=== PATIENT | male | born 1980 | race Caucasian/White ===

== ENCOUNTER 2020-01-04 09:34 | Emergency (ER) | payer SELFPAY ==
[2020-01-04 09:39] VITALS: BP 173/106; PULSE 111; RESP 18; TEMP 36.9; O2SAT 100; BMI 23.0
--- NOTE | 2020-01-04 10:02 | ED.GENADULT ---
HPI - General Adult General Chief complaint: Extremity Injury, Upper Stated complaint: L shoulder muscle pain, no ROM Time Seen by Provider: 01/04/20 09:44 Source: patient Mode of arrival: Ambulatory Limitations: no limitations History of Present Illness HPI narrative: 39-year-old male here for evaluation of left shoulder pain. Patient states that approximately 1 month ago he injured his shoulder while at work. This seemed to improve somewhat but always had a small amount of residual discomfort. 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 Thought that it would just improve overnight. Woke up this morning and went to work and had quite a bit of discomfort especially with moving his shoulder. He did not fall on his shoulder. Was told to come in by his boss. Related Data Previous Rx's Medication Instructions Recorded acetaminophen-codeine 1 tab PO Q4-6H PRN #7 tab 01/04/20 [Tylenol-Codeine #3] Allergies Allergy/AdvReac Type Severity Reaction Status Date / Time No Known Drug Allergies Allergy Verified 01/04/20 09:39 Review of Systems Constitutional Constitutional: Denies fever(s), Denies headache(s) and Denies weakness ENT Ears, Nose, Mouth, and Throat: Denies headache(s) Musculoskeletal Musculoskeletal: Denies tingling Comments: Left shoulder pain Integumentary/Breasts Skin/Breast: Denies lesions and Denies rash Neurologic Neurologic: Denies headache(s), Denies tingling and Denies weakness Hematologic/Lymphatic Hematologic/Lymphatic: Denies easy bleeding and Denies easy bruising Patient History Medical History Patient denies medical problems (Acute) Social History Smoking Status: Current every day smoker Smoking Status: Current every day smoker Substance Use Type: does not use Exam Initial Vital Signs Initial Vital Signs: Vital Signs Temperature 98.4 F 01/04/20 09:39 Pulse Rate 111 H 01/04/20 09:39 Respiratory Rate 18 01/04/20 09:39 Blood Pressure 173/106 H 01/04/20 09:39 Pulse Oximetry 100 01/04/20 09:39 Const General: cooperative and comfortable Limitations: mental status not altered [facility] Head: normal to inspection and normocephalic Resp Effort & Inspection: normal respiratory effort Cardio Rate: regular rate Pulses: radial pulses present on the left Skin Lesions: no lesions Rashes: no rashes Neuro Sensory Exam: no sensory deficits noted Extrem Other: Left wrist and left elbow unremarkable. Patient does have tenderness to palpation of the left biceps tendon proximally. He also has a positive Neer test. Also has pain with abduction of his shoulder. He can touch his right shoulder with his left hand however does have pain. Course Orders Ordered: Discontinued Medications Ketorolac Tromethamine (Toradol) 30 mg IM NOW ONE Stop: 01/04/20 10:01 Vital Signs Vital signs: Vital Signs - 8 hr 01/04/20 09:39 Temperature 98.4 F Pulse Rate 111 H Respiratory Rate 18 Blood Pressure 173/106 H Pulse Oximetry 100 Medical Decision Making MDM Narrative Medical decision making narrative: Patient has history and physical exam is consistent with a biceps tendinitis/strain or sprain. He did not fall on his shoulder. There is no other specific trauma. I feel we can hold on any radiologic studies for now. I did discuss these findings with the patient. We did discuss use of anti-inflammatories. We will send home with a sling however he was instructed to spend as much time out of the sling as possible. He was given return precautions. He is also given a phone number to help with establishing a primary provider in the area. Discharge Plan Departure Patient Disposition: Home Clinical Impression: Sprain, bicep Qualifiers: Encounter type: initial encounter Laterality: left Qualified Code(s): S46.212A - Strain of muscle, fascia and tendon of other parts of biceps, left arm, initial encounter Instructions: DI for Shoulder Sprain Activity Restrictions/Additional Instructions: Recommend you contact the health natural resources technician here at the hospital at [phone]. Take the medications as directed. Use the sling as needed but spend as much time out of the sling as possible. Return to the emergency department for any new symptoms. Recommend that you also start taking an anti-inflammatories such as Motrin or Naprosyn. Prescriptions: New acetaminophen-codeine [Tylenol-Codeine #3] 300-30 mg tablet 1 tab PO Q4-6H PRN (Reason: pain) Qty: 7 RF: 0 Stand Alone Forms: Work Release Note
[2020-01-04] MEDS: KETOROLAC 60 MG/2 ML VIAL 30 MG IM (10:23)
[2020-01-04 10:32] VITALS: BP 153/96; PULSE 110; RESP 20; O2SAT 99
== END 2020-01-04 10:34 | disposition home or self-care (01) ==
PROVIDERS: Emergency Provider Emergency Medicine
DX: S46.212A Strain of muscle, fascia and tendon of other parts of biceps, left arm, initial encounter (principal); Y99.0 Civilian activity done for income or pay
CPT/HCPCS: 96372; 99283; J1885

== ENCOUNTER 2020-09-25 17:08 | Emergency (ER) | payer OTHER, MEDICAID, SELFPAY ==
[2020-09-25 17:19] VITALS: BP 126/91; PULSE 108; RESP 20; TEMP 36.8; O2SAT 98; BMI 23.0
--- NOTE | 2020-09-25 17:29 | DI.RAD.S_ITS ---
PROCEDURE: XR CHEST 2V INDICATIONS: coughing. injury to sternum 7 days ago TECHNIQUE: 2 views of the chest were acquired. COMPARISON: None. FINDINGS: Surgical changes and devices: None. Lungs and pleura: Lungs are clear. No pleural effusions or pneumothorax. Mediastinum: Mediastinal contours are normal. Heart size is normal. Bones and chest wall: No suspicious bony abnormalities. To the limits of this normal protocol plain film study, no sternal fracture can be seen. Soft tissues appear unremarkable. IMPRESSION: Clear lungs. No sternal fracture by plain film. If there is strong clinical concern for intrathoracic trauma, then please consider a dedicated chest CT with IV contrast for further evaluation. Dictated by: Demetrio Treviño M.D. on 09/25/2020 at 16:47 Approved by: Demetrio Treviño M.D. on 09/25/2020 at 16:48
[2020-09-25 17:46] LABS: COVID19 -Nasal RAPID Negative (Negative)
[2020-09-25 18:02] VITALS: PULSE 90
[2020-09-25 18:04] VITALS: BP 144/98; PULSE 89; RESP 22; O2SAT 98
[2020-09-25 18:30] VITALS: BP 142/101; PULSE 98; RESP 25; O2SAT 98
--- NOTE | 2020-09-25 18:33 | ED.CHESTPAIN ---
HPI - Chest Pain General Chief Complaint: Shortness of Breath/Dyspnea Stated Complaint: ribs hurt, chest on fire, cough Time Seen by Provider: 09/25/20 18:01 Source: patient Mode of arrival: Family Vehicle Limitations: no limitations History of Present Illness HPI narrative: Patient is a 40-year-old male who presents with chest discomfort ongoing for 1 week. He said he and a joyce were wrestling about a week ago when his body landed directly on his chest. He is her knee take deep breaths needs. He is worried because he was previously diagnosed with pneumonia a couple weeks ago he did finish intake all this antibiotics. He said a few days ago he started having some chest congestion again but states that his productive cough is not any worse than normal. He only had 1 episode of sweats and low-grade fever after he took Tylenol. He has been trying to rest. He has been taking shots of vodka to help him sleep with the pain. MD complaint: chest pain Onset (ago): week(s) (1) Duration: constant Pain location: substernal Related Data Previous Rx's Medication Instructions Recorded acetaminophen-codeine 1 tab PO Q4-6H PRN #7 tab 01/04/20 [Tylenol-Codeine #3] Allergies Allergy/AdvReac Type Severity Reaction Status Date / Time No Known Drug Allergies Allergy Verified 09/25/20 17:29 Review of Systems Review of Systems Narrative: GENERAL: Denies chills, fatigue, malaise, fever, sweats, travel HEENT: Denies sinus pain, ear pain, sore throat, difficulty swallowing, neck pain RESPIRATORY: See HPI CARDIOVASCULAR: Denies chest pain, palpitations, orthopnea, edema GASTROINTESTINAL: Denies nausea, vomiting, abdominal pain, diarrhea, constipation, melena. : Denies dysuria, frequency, incontinence, hematuria, urinary retention, flank pain. MUSCULOSKELETAL: Denies weakness, joint pain, or bony pain SKIN: No rash, no erythema, no pruritus NEUROLOGIC: Denies weakness, dizziness, headache, numbness, change in speech, confusion PSYCHIATRIC: No concerning psychosocial issues. 12 point review of systems is negative except for those stated above and HPI Patient History Medical History Patient denies medical problems Social History Smoking Status: Current every day smoker Smoking Status: Current every day smoker tobacco type: cigarettes alcohol intake frequency: 0-2 drinks per day Alcohol type: hard liquor Substance Use Type: marijuana Exam Initial Vital Signs Initial Vital Signs: Vital Signs Temperature 98.3 F 09/25/20 17:19 Pulse Rate 108 H 09/25/20 17:19 Respiratory Rate 20 09/25/20 17:19 Blood Pressure 126/91 H 09/25/20 17:19 Pulse Oximetry 98 09/25/20 17:19 GENERAL: Well-appearing, well-nourished and in no acute distress. HEENT: Head atraumatic,EOMI, pupils reactive, face symmetric, moist mucous membranes CARDIOVASCULAR: Regular rate and rhythm without murmurs, rubs or gallops. RESPIRATORY: Breath sounds equal bilaterally, no wheezes rales or rhonchi. Pain over sternum with palpation no sign of trauma no contusion or erythema or paradoxical movement ABDOMEN: Soft, nontender. Normoactive bowel sounds all 4 quadrants. No guarding or rebound. No right upper quadrant pain EXTREMITIES: Normal range of motion, no clubbing or edema. Neurovascularly intact NEUROLOGICAL: Alert and oriented x4.Normal gait and speech. SKIN: Warm, dry, no laceration, no petechiae, no rashes or lesions. Course Orders Ordered: ED Orders 09/25/20 17:23 COVID19 Stat 09/25/20 17:29 Chest [XR chest 2V] Stat 09/25/20 18:34 EKG-12 Lead Stat Discontinued Medications Ketorolac Tromethamine (Ketorolac 60 Mg/2 Ml Vial) 30 mg IM NOW ONE Stop: 09/25/20 18:33 Last Admin: 09/25/20 18:42 Dose: 30 mg Documented by: GERALD Vital Signs Vital signs: Vital Signs - 8 hr 09/25/20 17:19 09/25/20 18:02 09/25/20 18:04 Temperature 98.3 F Pulse Rate 108 H 90 89 Respiratory Rate 22 Blood Pressure 126/91 H 144/98 H Pulse Oximetry 98 98 09/25/20 18:30 09/25/20 19:00 09/25/20 19:30 Temperature Pulse Rate 98 H 92 H 87 Respiratory Rate 25 H 23 29 H Blood Pressure 142/101 H 135/97 H 136/96 H Pulse Oximetry 98 99 97 MDM - Chest Pain Lab Data Attestation: I reviewed the patient's lab results. Labs: Lab Results 09/25/20 Range/Units 17:23 COVID-19 PCR Negative (Negative) Imaging Data Chest x-ray: Radiologist's Impression: PROCEDURE: XR CHEST 2V INDICATIONS: coughing. injury to sternum 7 days ago TECHNIQUE: 2 views of the chest were acquired. COMPARISON: None. FINDINGS: Surgical changes and devices: None. Lungs and pleura: Lungs are clear. No pleural effusions or pneumothorax. Mediastinum: Mediastinal contours are normal. Heart size is normal. Bones and chest wall: No suspicious bony abnormalities. To the limits of this normal protocol plain film study, no sternal fracture can be seen. Soft tissues appear unremarkable. IMPRESSION: Clear lungs. No sternal fracture by plain film. If there is strong clinical concern for intrathoracic trauma, then please consider a dedicated chest CT with IV contrast for further evaluation. Dictated by: Demetrio Treviño M.D. on 09/25/2020 at 16:47 ECG Data Attestation: I personally reviewed and interpreted this ECG as follows: Interpretation: Normal sinus rhythm rate 83 p.r. interval 146 QRS [address] changes or T-wave inversions [facility] Narrative Medical decision making narrative: The patient is concerned his pneumonia might be back although he has not had any definite fever or productive cough. Chest x-ray does not confirm pneumonia, nor does it show any fracture. This is likely chest and rib sternal strain. He is given incentive spirometer to be sure that he take deep breaths. His COVID test is negative. He is given a shot of Toradol which he says has helped a lot. Discharge Plan Departure Patient Disposition: Home Clinical Impression: Contusion of sternum Qualifiers: Encounter type: initial encounter Qualified Code(s): S20.219A - Contusion of unspecified front wall of thorax, initial encounter Activity Restrictions/Additional Instructions: *You have been diagnosed with sternal contusion *What to do: Take a few weeks to heal. Use incentive spirometer up to 5-10 times an hour while awake to help prevent recurrent pneumonia *Continue to take medications as directed Ibuprofen 800 mg every 8 hours if needed for [id number] pain *Follow up with your primary care provider in 2-3 days *Return to ER if you should have pain shortness of breath fever or any new, worsening or concerning symptoms Prescriptions: No Action acetaminophen-codeine [Tylenol-Codeine #3] 300-30 mg tablet 1 tab PO Q4-6H PRN (Reason: pain) Qty: 7 RF: 0
[2020-09-25] MEDS: KETOROLAC 60 MG/2 ML VIAL 30 MG IM (18:42)
[2020-09-25 19:00] VITALS: BP 135/97; PULSE 92; RESP 23; O2SAT 99
[2020-09-25 19:30] VITALS: BP 136/96; PULSE 87; RESP 29; O2SAT 97
--- NOTE | 2020-09-25 19:44 | PC.NURSE ---
Pt was wrestling about a week ago, when someone fell on his chest. Increasing pain over past week in sternal area. States unable to take a deep breath related to the pain.
== END 2020-09-25 19:44 | disposition home or self-care (01) ==
PROVIDERS: Emergency Medicine; Emergency Provider Emergency Medicine
DX: S20.219A Contusion of unspecified front wall of thorax, initial encounter (principal); Y93.72 Activity, wrestling; Z11.59 Encounter for screening for other viral diseases
CPT/HCPCS: 71046; 87635; 93005; 93010; 96372; 99283; STOP; J1885

== ENCOUNTER → 2023-01-18 13:57 | Outpatient (CLI) | payer OTHER, MEDICAID, SELFPAY ==
[2023-01-18 14:26] LABS: Hematocrit 30.2 % (41-53); Hemoglobin 10.2 g/dL (13.5-17.5); Mean Corpuscular HGB Conc 33.8 % (30-36); Mean Corpuscular Volume 103.6 fL (80-100); Platelet Count 560 X10^3/uL (150-400); Red Blood Cell Count 2.91 X10^6/uL (4.5-5.9); Red Cell Distribution Width 21.8 % (11.6-14.8)
[2023-01-18 14:27] LABS: Add Manual Diff / Slide Review YES
[2023-01-18 14:41] LABS: Alanine Aminotransferase 52 IU/L (<50); Albumin 3.1 g/dL (3.5-5.0); Albumin Globulin Ratio 0.6 (1.0-2.8); Alkaline Phosphatase 238 U/L (38-126); Aspartate Aminotransferase 227 IU/L (17-59); BUN Creatinine Ratio 9.3 (6-22); Blood Urea Nitrogen 4 mg/dL (9-20); Calcium 8.5 mg/dL (8.4-10.2); Carbon Dioxide 17 mmol/L (22-32); Chloride 109 mmol/L (98-107); Estimated Glomerular Filt Rate > 60 mL/min (>60); Globulin 4.8 g/dL (1.7-4.1); Glucose 116 mg/dL (70-100); HEMOLYSIS 32 (0-50); Lipase 146 U/L (23-300); Potassium 2.8 mmol/L (3.4-5.1); Sodium 140 mmol/L (137-145); Total Protein 7.9 g/dL (6.3-8.2)
[2023-01-18 14:54] LABS: Neutrophils Absolute Manual 13600 /uL (3000-5900); Total Cells Counted 100
[2023-01-18 14:58] LABS: Macrocytosis 1+; Target Cells 1+
[2023-01-18 14:59] LABS: Polychromasia 1+
== END ==
PROVIDERS: PCP Family Medicine; Referring Provider Family Medicine; Visit Provider Family Medicine
DX: F10.10 Alcohol abuse, uncomplicated (principal); K85.90 Acute pancreatitis without necrosis or infection, unspecified
CPT/HCPCS: 36415; 80053; 83690; 85007; 85025

== ENCOUNTER → 2023-02-08 10:56 | Outpatient (CLI) | payer OTHER, MEDICAID, SELFPAY ==
[2023-02-08 11:45] LABS: Ammonia (NH3) < 9 umol/L (9-30)
[2023-02-08 11:57] LABS: Add Manual Diff / Slide Review NO; Basophils Absolute Auto 100 /uL (0-100); Eosinophils Absolute Auto 900 /uL (0-450); Hematocrit 36.4 % (41-53); Lymphocytes Absolute Auto 3100 /uL (1100-4500); Lymphocytes Percent Auto 25.3 % (25-40); Mean Corpuscular Hemoglobin 33.7 PG (26-34); Mean Corpuscular Volume 102.3 fL (80-100); Monocytes Absolute Auto 900 /uL (0-900); Monocytes Percent Auto 6.9 % (3-14); Neutrophils Absolute Auto 7400 /uL (1500-7000); Neutrophils Percent Auto 59.8 % (50-75); Platelet Count 356 X10^3/uL (150-400); Red Blood Cell Count 3.56 X10^6/uL (4.5-5.9); Red Cell Distribution Width 15.2 % (11.6-14.8); White Blood Cell Count 12.4 X10^3/uL (4.5-11.0)
[2023-02-08 12:34] LABS: Alanine Aminotransferase 50 IU/L (<50); Albumin 3.9 g/dL (3.5-5.0); Alkaline Phosphatase 111 U/L (38-126); Amylase 83 U/L (30-110); Aspartate Aminotransferase 87 IU/L (17-59); BUN Creatinine Ratio 16.7 (6-22); Bilirubin Total 2.2 mg/dL (0.2-1.3); Blood Urea Nitrogen 8 mg/dL (9-20); Calcium 10.8 mg/dL (8.4-10.2); Carbon Dioxide 21 mmol/L (22-32); Chloride 105 mmol/L (98-107); Estimated Glomerular Filt Rate > 60 mL/min (>60); Globulin 3.9 g/dL (1.7-4.1); Glucose 93 mg/dL (70-100); HEMOLYSIS < 15 (0-50); Lipase 244 U/L (23-300); Potassium 4.8 mmol/L (3.4-5.1); Sodium 138 mmol/L (137-145); Total Protein 7.8 g/dL (6.3-8.2)
[2023-02-08 12:38] LABS: HEMOLYSIS < 15 (0-50); Iron 39 ug/dL (49-181)
[2023-02-08 12:49] LABS: Percent Iron Saturation 10 % (20-50); Total Iron Binding Capacity 381 ug/dL (261-462); Transferrin 293 mg/dL (206-381)
== END ==
PROVIDERS: PCP Family Medicine; Referring Provider Family Medicine; Visit Provider Family Medicine
DX: F10.10 Alcohol abuse, uncomplicated (principal); K74.60 Unspecified cirrhosis of liver; K85.90 Acute pancreatitis without necrosis or infection, unspecified
CPT/HCPCS: 36415; 80053; 82140; 82150; 83540; 83550; 83690; 85025

== ENCOUNTER 2024-03-29 11:41 | Inpatient (IN) | payer OTHER, MEDICAID, SELFPAY ==
[2024-03-29] VITALS (27 sets, daily range): BP systolic 109–145; BP diastolic 69–93; PULSE 85–125; RESP 15–31; TEMP 36.9–37.6; O2SAT 92–99; BMI 20.2
--- NOTE | 2024-03-29 12:11 | DI.RAD.S_ITS ---
PROCEDURE: XR CHEST 1V INDICATIONS: chest pain TECHNIQUE: One view of the chest was acquired. COMPARISON: [facility], , XR CHEST 2V, 09/25/2020, 17:32. FINDINGS: Surgical changes and devices: None. Lungs and pleura: Lungs are clear. No pleural effusions or pneumothorax. Mediastinum: Mediastinal contours appear normal. Heart size is normal. Bones and chest wall: No suspicious bony lesions. Overlying soft tissues appear unremarkable. IMPRESSION: No acute cardiopulmonary abnormality is seen. Approved by: Mary Kate Bautista M.D.,Ph.D. on 03/29/2024 at 12:01
[2024-03-29 12:42] LABS: Add Manual Diff / Slide Review NO; Basophils Absolute Auto 100 /uL (0-100); Basophils Percent Auto 0.5 % (0-2); Eosinophils Absolute Auto 100 /uL (0-450); Eosinophils Percent Auto 0.5 % (2-4); Hematocrit 38.5 % (41-53); Hemoglobin 13.1 g/dL (13.5-17.5); Lymphocytes Absolute Auto 1200 /uL (1100-4500); Lymphocytes Percent Auto 8.1 % (25-40); Mean Corpuscular HGB Conc 34.1 % (30-36); Mean Corpuscular Volume 108.5 fL (80-100); Monocytes Absolute Auto 1100 /uL (0-900); Monocytes Percent Auto 7.6 % (3-14); Neutrophils Absolute Auto 12400 /uL (1500-7000); Neutrophils Percent Auto 83.3 % (50-75); Platelet Count 138 X10^3/uL (150-400); Red Blood Cell Count 3.55 X10^6/uL (4.5-5.9); Red Cell Distribution Width 14.7 % (11.6-14.8); White Blood Cell Count 14.9 X10^3/uL (4.5-11.0)
[2024-03-29] MEDS: ONDANSETRON 4 MG/2 ML INJ IV (12:44)
[2024-03-29 12:47] LABS: Prothrombin Time 11.8 SECONDS (9.4-12.5)
[2024-03-29 12:50] LABS: PTT Partial Thromboplastin Tim 38 SECONDS (25.1-36.5)
[2024-03-29 12:52] LABS: Alanine Aminotransferase 79 IU/L (<50); Albumin 4.1 g/dL (3.5-5.0); Albumin Globulin Ratio 1.1 (1.0-2.8); Alkaline Phosphatase 392 U/L (38-126); Aspartate Aminotransferase 301 IU/L (17-59); BUN Creatinine Ratio 11.1 (6-22); Blood Urea Nitrogen 5 mg/dL (9-20); Calcium 8.6 mg/dL (8.4-10.2); Carbon Dioxide 19 mmol/L (22-32); Chloride 104 mmol/L (98-107); Creatine Kinase 47 U/L (55-170); Estimated Glomerular Filt Rate > 60 mL/min (>60); Globulin 3.6 g/dL (1.7-4.1); Glucose 174 mg/dL (70-100); HEMOLYSIS < 15 (0-50); Lipase 111 U/L (23-300); Magnesium 1.7 mg/dL (1.6-2.3); Potassium 3.5 mmol/L (3.4-5.1); Sodium 139 mmol/L (137-145); Total Protein 7.7 g/dL (6.3-8.2)
[2024-03-29 13:03] LABS: Troponin I < 0.012 ng/mL (0.01-0.034)
--- NOTE | 2024-03-29 13:03 | PC.NURSE ---
Pt came to ED today because he has been experiencing upper right abd pain and epigastric cp for several days. Pt also reports that he has been experiencing n/v and has a difficult time keeping anything down, even if he takes just small bites. Pt currently drinks at least 750ml of vodka per day. Pt currently states that he is feeling a tingling sensation in his skin and that his skin is very sensitive to touch. Denies any bloody vomit/stools. Denies any visual or auditory hallucinations. C/o mild HARRIS. CIWA 4. HR currently 122. Pt has hx of inpatient ETOH detox at [facility] and in [place]. A&Ox4.
[2024-03-29 13:15] LABS: Ictotest Urine Positive (Negative)
--- NOTE | 2024-03-29 13:20 | PC.NURSE ---
pt last ETOH drink at 209903/28/2024
[2024-03-29 13:30] LABS: Bacteria Urine None Seen; Culture Indicated Urine Specimen Cultured; Mucus Urine 1+ (Negative); RBC Urine None Seen (0-5/HPF); Squamous Epithelial Cell Urine None Seen (0-5/HPF); Urine Volume 10mL (spun); WBC Urine 0-1/HPF (0-5/HPF)
[2024-03-29 13:31] LABS: UR Morphine/Opiate cutoff 300 Negative (Negative); Ur Creatinine Normal (Normal); Ur Specific Gravity Normal (Normal); Urine Amphetamines Negative (Negative); Urine Barbiturates Negative (Negative); Urine Benzodiazepines Negative (Negative); Urine Cocaine Negative (Negative); Urine MDMA Negative (Negative); Urine Methadone Negative (Negative); Urine Methamphetamines Negative (Negative); Urine Oxycodone Negative (Negative); Urine Phencyclidine Negative (Negative); Urine Tetrahydrocannabinol Positive (Negative); Urine Tricyclic Antidepressant Negative (Negative); Urine pH Normal (Normal)
[2024-03-29] MEDS: LORazepam 2 MG/ML INJ IV (14:18)
[2024-03-29] MEDS: SODIUM CHLORIDE 0.9% 1,000 ML 1000 ML IV (14:18)
--- NOTE | 2024-03-29 14:36 | ED_ITS ---
HPI - Chest Pain General Chief Complaint: Chest Pain Stated Complaint: Chest Pain, Abd numbness, constipation Time Seen by Provider: 03/29/24 14:36 Source: patient Mode of arrival: Ambulatory Limitations: no limitations History of Present Illness HPI narrative: 43-year-old male with no known history of CAD, history of chronic alcoholism, drinks a pint of vodka daily, last drink 7:00 p.m. last night, feels a little shaky, has some chest discomfort, also some upper epigastric area abdominal discomfort. When asked if he had any black or red stools, he says he has had this for many months, unchanged. Denies use of Pepto-Bismol. Does not seem to recognize diagnoses of cirrhosis, never had fluid drained from his belly, denies sensation of abdominal distention. He does not recall any previous history of stomach ulcers or GI bleeding. He believes he was admitted to [facility] for alcohol withdrawal in the past, sometime last year. Related Data Previous Rx's Medication Instructions Recorded potassium chloride 20 mEq 20 meq PO BID low potassium #60 01/24/23 tablet,extended release(part/cryst) tabs acamprosate 333 mg tablet,delayed 666 mg (2 x 333 mg) PO TID alcohol 02/08/23 release abuse #180 tabs oxycodone 5 mg tablet 2.5 - 5 mg (0.5 - 1 x 5 mg) PO BID 02/08/23 PRN pain #10 tabs Allergies Allergy/AdvReac Type Severity Reaction Status Date / Time morphine AdvReac Unknown Uncoded 02/13/23 11:29 Review of Systems Review of Systems Narrative: as per HPI Patient History Medical History (Updated 03/29/24 @ 20:03 by Jac Castle MD) Chronic cough (~2021) Cirrhosis Hypokalemia Pancreatitis (~2022) Alcohol abuse Patient denies medical problems Family History (Updated 02/12/23 @ 21:02 by Emily Barajas) Father History of heart disease Hypertension Hyperlipidemia Stroke Mother History of heart disease Hyperlipidemia Social History Smoking Status: Current every day smoker Smoking Status: Current every day smoker tobacco type: cigarettes alcohol intake frequency: 3 or more drinks per day Alcohol type: hard liquor Substance Use Type: marijuana Exam Narrative Exam Narrative: GENERAL: Well-developed patient, in mild distress, some tremulousness. HEAD: Atraumatic. Normocephalic. EYES: Pupils equal round and reactive. Extraocular motions intact. No scleral icterus. No injection or drainage. ENT: Nose without bleeding, purulent drainage. Throat without erythema, tonsillar hypertrophy or exudate. Airway patent. NECK: Trachea midline. Non tender CARDIOVASCULAR: Fast rate and regular rhythm without murmurs, gallops, or rubs. RESPIRATORY: Clear to auscultation. Breath sounds equal bilaterally. No wheezes, rales, or rhonchi. GASTROINTESTINAL: Abdomen soft, nondistended, without obvious fluid wave, some tenderness epigastrium, nonrigid, no guarding or rebound. EXTREMITIES: No edema or joint tenderness. BACK: Nontender without deformity or crepitance. No flank tenderness. NEURO: AOx3. SKIN: No rash or erythema of visible areas Initial Vital Signs Initial Vital Signs: Vital Signs Temperature 98.4 F 03/29/24 12:04 Pulse Rate 116 H 03/29/24 12:04 Respiratory Rate 18 03/29/24 12:04 Blood Pressure 111/90 03/29/24 12:04 Pulse Oximetry 97 03/29/24 12:04 Oxygen Delivery Method Room Air 03/29/24 12:04 Course Orders Ordered: ED Orders 03/29/24 12:56 Ictotest Urine Stat Urine Culture Stat Urine Microscopic Stat urine tox [Urine Drug Screen, Rapid] Stat 03/29/24 16:20 Prothrombin Time INR Stat 03/29/24 17:08 CT abdomen pelvis w con Stat Folic Acid (Folic Acid 1 Mg Tablet) 1 mg PO DAILY [facility] Lorazepam (Lorazepam 2 Mg/Ml Inj) 0 mg IV CIWAPRN PRN; Protocol PRN Reason: Alcohol Withdrawal Multivitamins (Multivitamin 1 Tablet) 1 tab PO DAILY [facility] Naloxone HCl (Naloxone 0.4 Mg/Ml Vial) 0.2 mg IV Q2MIN PRN PRN Reason: Opiate Reversal Ondansetron HCl (Ondansetron 4 Mg/2 Ml Inj) 4 mg IV Q6HR PRN PRN Reason: Nausea And Vomiting Pantoprazole Sodium (Pantoprazole 40 Mg Vial) 40 mg IV DAILY [facility] Thiamine HCl (Thiamine 100 Mg Tablet) 100 mg PO DAILY [facility] Stop: 04/02/24 09:01 Discontinued Medications Aspirin (Aspirin 81 Mg Chew Tab) 324 mg PO NOW ONE Stop: 03/29/24 12:12 Last Admin: 03/29/24 13:15 Dose: Not Given Documented By: MPO Hydromorphone HCl (Hydromorphone 0.5 Mg Inj) 0.5 mg IV NOW ONE Stop: 03/29/24 19:32 Last Admin: 03/29/24 19:37 Dose: 0.5 mg Documented By: AB Sodium Chloride (Normal Saline 0.9%) 1,000 mls @ 1,000 mls/hr IV BOLUS ONE Stop: 03/29/24 15:08 Last Infusion: 03/29/24 15:51 Dose: Infused Documented By: Admin: 03/29/24 14:18 Dose: 1,000 mls/hr Documented By: MPO Lorazepam (Lorazepam 2 Mg/Ml Inj) 2 mg IV NOW ONE Stop: 03/29/24 14:05 Last Admin: 03/29/24 14:18 Dose: 2 mg Documented By: MPO Nicotine (Nicotine 21 Mg Patch) 21 mg TOP NOW ONE Stop: 03/29/24 19:24 Last Admin: 03/29/24 19:34 Dose: 21 mg Documented By: DARIA Ondansetron HCl (Ondansetron 4 Mg/2 Ml Inj) 4 mg IV NOW ONE Stop: 03/29/24 12:41 Last Admin: 03/29/24 12:44 Dose: 4 mg Documented By: ES Ondansetron HCl (Ondansetron 4 Mg/2 Ml Inj) 4 mg IV NOW ONE Stop: 03/29/24 16:08 Last Admin: 03/29/24 18:25 Dose: Not Given Documented By: MPO Pantoprazole Sodium (Pantoprazole 40 Mg Vial) 80 mg IV NOW ONE Stop: 03/29/24 16:08 Last Admin: 03/29/24 16:24 Dose: 80 mg Documented By: MPO Phenobarbital (Phenobarbital 65 Mg/Ml Vial) 65 mg IV NOW ONE Stop: 03/29/24 15:59 Last Admin: 03/29/24 16:24 Dose: 65 mg Documented By: MPO Vital Signs Vital signs: Vital Signs - 8 hr 03/29/24 14:00 03/29/24 14:00 03/29/24 14:30 Pulse Rate 104 H Respiratory Rate 26 H Blood Pressure 127/93 H 123/82 Pulse Oximetry 96 03/29/24 14:30 03/29/24 15:00 03/29/24 15:00 Pulse Rate 106 H 104 H Respiratory Rate 26 H 24 Blood Pressure 121/76 Pulse Oximetry 96 03/29/24 15:30 03/29/24 15:30 03/29/24 16:00 Pulse Rate 105 H Respiratory Rate 19 Blood Pressure 123/69 123/87 Pulse Oximetry 03/29/24 16:00 03/29/24 16:30 03/29/24 17:00 Pulse Rate 125 H 104 H 107 H Respiratory Rate 29 H 31 H Blood Pressure Pulse Oximetry 98 96 92 03/29/24 17:30 03/29/24 18:00 03/29/24 18:30 Pulse Rate 101 H 94 H 100 H Respiratory Rate 23 21 20 Blood Pressure Pulse Oximetry 97 95 95 03/29/24 19:00 03/29/24 19:28 03/29/24 19:28 Pulse Rate 102 H 103 H Respiratory Rate 22 18 Blood Pressure 122/81 Pulse Oximetry 96 96 03/29/24 19:30 03/29/24 19:30 Pulse Rate 118 H Respiratory Rate 23 Blood Pressure 115/77 Pulse Oximetry 97 MDM - Chest Pain Lab Data Attestation: I reviewed the patient's lab results. 03/29/24 12:35 03/29/24 12:35 Labs: Lab Results 03/29/24 03/29/24 03/29/24 Range/Units 12:35 12:56 16:20 WBC 14.9 H (4.5-11.0) X10^3/uL RBC 3.55 L (4.5-5.9) X10^6/uL Hgb 13.1 L (13.5-17.5) g/dL Hct 38.5 L (41-53) % MCV 108.5 H (80-100) fL MCH 37.0 H (26-34) PG MCHC 34.1 (30-36) % RDW 14.7 (11.6-14.8) % Plt Count 138 L (150-400) X10^3/uL Neut % (Auto) 83.3 H (50-75) % Lymph % (Auto) 8.1 L (25-40) % [place] % (Auto) 7.6 (3-14) % Eos % (Auto) 0.5 L (2-4) % Baso % (Auto) 0.5 (0-2) % Neut # (Auto) 75151 H (6322-1588) /uL Lymph # (Auto) 1200 (0265-5191) /uL [place] # (Auto) 1100 H (0-900) /uL Eos # (Auto) 100 (0-450) /uL Baso # (Auto) 100 (0-100) /uL PT 11.8 12.4 (9.4-12.5) SECONDS INR 1.0 1.1 (0.9-1.3) APTT 38 H (25.1-36.5) SECONDS Sodium 139 (137-145) mmol/L Potassium 3.5 (3.4-5.1) mmol/L Chloride 104 (98-107) mmol/L Carbon Dioxide 19 L (22-32) mmol/L BUN 5 L (9-20) mg/dL Creatinine 0.45 L (0.66-1.25) mg/dL Estimated GFR > 60 (>60) mL/min BUN/Creatinine Ratio 11.1 (6-22) Glucose 174 H (70-100) mg/dL Calcium 8.6 (8.4-10.2) mg/dL Magnesium 1.7 (1.6-2.3) mg/dL Total Bilirubin 2.0 H (0.2-1.3) mg/dL AST 301 H (17-59) IU/L ALT 79 H (<50) IU/L Alkaline Phosphatase 392 H (38-126) U/L Total Creatine Kinase 47 L (55-170) U/L Troponin I < 0.012 (0.01-0.034) ng/mL Total Protein 7.7 (6.3-8.2) g/dL Albumin 4.1 (3.5-5.0) g/dL Globulin 3.6 (1.7-4.1) g/dL Albumin/Globulin Ratio 1.1 (1.0-2.8) Lipase 111 (23-300) U/L Ur Bilirubin Confirm Positive H (Negative) Urine RBC None seen (0-5/HPF) Urine WBC 0-1/hpf (0-5/HPF) Ur Squamous Epith Cells None seen (0-5/HPF) Urine Bacteria None seen (None) Urine Mucus 1+ H (Negative) Ur Culture Indicated? Specimen cultured Vol Urine Centrifuged 10ml (spun) U Opiates 300ng/mL cut Negative (Negative) Ur Oxycodone Screen Negative (Negative) Urine Methadone Screen Negative (Negative) Ur Barbiturates Screen Negative (Negative) U Tricyclic Antidepress Negative (Negative) Ur Phencyclidine Scrn Negative (Negative) Ur Amphetamines Screen Negative (Negative) U Methamphetamines Scrn Negative (Negative) Ur MDMA Scrn (Ecstasy) Negative (Negative) U Benzodiazepines Scrn Negative (Negative) Urine Cocaine Screen Negative (Negative) U Marijuana (THC) Screen Positive H (Negative) Urine pH Normal (Normal) Urine Specific [place] Normal (Normal) Ur Creatinine Normal (Normal) Point of Care Testing Stool Occult Blood Negative Urine Dip Bedside Urine Glucose Negative Bedside Urine Bilirubin + 1 Bedside Urine Ketone +/- 5 Urine Specific [place] 1.020 Bedside Urine Occult Blood - Negative Bedside Urine pH 6.0 Bedside Urine Protein ++ 100 Bedside Urine Urobilinogen 1+ 2mg Bedside Urine Nitrite + Positive Bedside Urine Leukocytes + 70 Esterase Imaging Data Chest x-ray: Radiologist's Impression: [address] [address] XRay Report Signed Patient: Ashwin Hancock MR#: [id number] : 1980 Acct:[id number] Age/Sex: 43 / M Date of Service: 03/29/24 Loc: ED Accession Number: [id number] Procedure: XR chest 1V Ordering Provider: Jac Castle MD PROCEDURE: XR CHEST 1V INDICATIONS: chest pain TECHNIQUE: One view of the chest was acquired. COMPARISON: [facility], , XR CHEST 2V, 09/25/2020, 17:32. FINDINGS: Surgical changes and devices: None. Lungs and pleura: Lungs are clear. No pleural effusions or pneumothorax. Mediastinum: Mediastinal contours appear normal. Heart size is normal. Bones and chest wall: No suspicious bony lesions. Overlying soft tissues appear unremarkable. IMPRESSION: No acute cardiopulmonary abnormality is seen. Approved by: Mary Kate Bautista M.D.,Ph.D. on 03/29/2024 at 12:01 CT scan - abdomen/pelvis: Radiologist's Impression: [address] [address] [address] Scan Report Signed Patient: Ashwin Hancock MR#: [id number] : 1980 Acct:[id number] Age/Sex: 43 / M Date of Service: 03/29/24 Loc: ED Accession Number: [id number] Procedure: CT abdomen pelvis w con Ordering Provider: Jac Castle MD PROCEDURE: CT ABDOMEN PELVIS W CON INDICATIONS: abdominal pain, hx etoh TECHNIQUE: After the administration of intravenous contrast, axial sections acquired from the lung bases to the pubic symphysis. Coronal and sagittal reformats were performed. For radiation dose reduction, the following was used: automated exposure control, adjustment of mA and/or kV according to patient size. COMPARISON: None. FINDINGS: Image quality: Diagnostic. Lower Chest: No significant findings. ABDOMEN: Liver: No solid mass. Hepatic steatosis. Gallbladder: No radiopaque gallstones or wall thickening. Biliary ducts: No biliary dilation. Pancreas: No ductal dilation. Spleen: Size is within normal limits. Adrenal Glands: No adrenal nodules. Kidneys and Ureters: No hydronephrosis. No solid mass. No complex renal cystic lesion which requires follow up. Stomach and Bowel: Normal colonic caliber, without significant wall thickening. Normal caliber appendix. Peritoneum: No abnormal intraperitoneal fluid. No free air. Ventral Wall: No significant ventral hernia. Abdominal Nodes: No retroperitoneal or mesenteric adenopathy by size criteria. Vessels: Aorta and inferior vena cava are normal in size. PELVIS: Pelvic Organs: Unremarkable. Bladder: No bladder wall thickening, accounting for underdistention. Pelvic Nodes: No enlarged lymph nodes. Miscellaneous: No inguinal hernias are seen. Bones: No aggressive osseous abnormality. IMPRESSION: Hepatic steatosis. No other acute findings in the abdomen or pelvis. Approved by: Mary Kate Bautista M.D.,Ph.D. on 03/29/2024 at 17:11 ECG Data Attestation: I personally reviewed and interpreted this ECG as follows: Interpretation: Sinus tachycardia with rate 101, no obvious ST segment elevation or depression changes. Some movement artifact from tremulousness noted. MT, QRS, QTC intervals normal. MDM Narrative Medical decision making narrative: 43-year-old male with chronic alcohol use, last drink 7:00 p.m. last night, complains of lower chest and epigastric abdominal pain, tachycardia noted, tremulousness, suspect alcohol withdrawal, has been in alcohol withdrawal in the past, no shaking or incontinence, no seizures suspected thus far, for anxiety was given initial IV Ativan, we will initiate IV phenobarbital for alcohol withdrawal loading. Troponin negative, lipase negative, hemoglobin normal. Chest x-ray negative. He does admit to black stools but apparently this is many months duration and unchanged, denies Pepto-Bismol use. IV Protonix, IV Zofran. White blood cell count 47559, hemoglobin normal, LFTs show AST greater than ALT pattern mild elevation consistent with alcoholic hepatitis, tbili not elevated, lipase normal, urinalysis negative. CT abdomen and pelvis imaging requested. CT abdomen pelvis showed no acute changes. See radiology report Rectal examination brown streaky stool, guaiac negative Patient received IV phenobarbital, transient improvement in withdrawal symptoms, heart rate 110 noted, he will need further treatment, consider admission, believes that he has been admitted for alcohol withdrawal in the past, no seizures. We will contact hospitalist. Case discussed with hospitalist Dr Baltazar, accepts patient for admission to inpatient ICU Critical Care Time Critical Care Time Critical Care Time: Yes Total Critical Care Time: 35 Attestation: The high probability of a clinically significant, sudden or life threatening deterioration of the [gastrointestinal, cardiovascular, neurologic] system(s) required my full and direct attention, intervention and personal management. The aggregate critical care time was [35] minutes. This time is in addition to time spent performing reported procedures but includes the following: [x] Data Review and interpretation [x] Patient assessment and monitoring of vital signs [x] Documentation [x] Medication orders and management Discharge Plan Departure Patient Disposition: Admitted As Inpatient Clinical Impression: Chest pain, Epigastric abdominal pain, Alcohol withdrawal Admit Date/Time: 03/29/24 20:04 Admit Provider: Rob Castaneda
[2024-03-29] MEDS: PHENobarbital 65 MG/ML VIAL IV (16:24)
[2024-03-29] MEDS: PANTOPRAZOLE 40 MG VIAL 80 MG IV (16:24)
[2024-03-29 16:46] LABS: INR 1.1 (0.9-1.3); Prothrombin Time 12.4 SECONDS (9.4-12.5)
--- NOTE | 2024-03-29 17:08 | DI.CT.S_ITS ---
PROCEDURE: CT ABDOMEN PELVIS W CON INDICATIONS: abdominal pain, hx etoh TECHNIQUE: After the administration of intravenous contrast, axial sections acquired from the lung bases to the pubic symphysis. Coronal and sagittal reformats were performed. For radiation dose reduction, the following was used: automated exposure control, adjustment of mA and/or kV according to patient size. COMPARISON: None. FINDINGS: Image quality: Diagnostic. Lower Chest: No significant findings. ABDOMEN: Liver: No solid mass. Hepatic steatosis. Gallbladder: No radiopaque gallstones or wall thickening. Biliary ducts: No biliary dilation. Pancreas: No ductal dilation. Spleen: Size is within normal limits. Adrenal Glands: No adrenal nodules. Kidneys and Ureters: No hydronephrosis. No solid mass. No complex renal cystic lesion which requires follow up. Stomach and Bowel: Normal colonic caliber, without significant wall thickening. Normal caliber appendix. Peritoneum: No abnormal intraperitoneal fluid. No free air. Ventral Wall: No significant ventral hernia. Abdominal Nodes: No retroperitoneal or mesenteric adenopathy by size criteria. Vessels: Aorta and inferior vena cava are normal in size. PELVIS: Pelvic Organs: Unremarkable. Bladder: No bladder wall thickening, accounting for underdistention. Pelvic Nodes: No enlarged lymph nodes. Miscellaneous: No inguinal hernias are seen. Bones: No aggressive osseous abnormality. IMPRESSION: Hepatic steatosis. No other acute findings in the abdomen or pelvis. Approved by: Mary Kate Bautista M.D.,Ph.D. on 03/29/2024 at 17:11
[2024-03-29] MEDS: NICOTINE 21 MG PATCH TOP (19:34)
[2024-03-29] MEDS: HYDROMORPHONE 0.5 MG INJ IV ×2 (19:37→23:43)
[2024-03-29 23:53] LABS: MRSA (Nasal) PCR NOT DETECTED (Not Detect)
[2024-03-30] VITALS (55 sets, daily range): BP systolic 104–116; BP diastolic 74–78; PULSE 77–103; RESP 16–23; TEMP 36.6–37.1; O2SAT 93–98
[2024-03-30] MEDS: HYDROMORPHONE 0.5 MG INJ IV ×5 (02:15→21:11)
[2024-03-30] MEDS: ONDANSETRON 4 MG/2 ML INJ IV (04:48)
--- NOTE | 2024-03-30 05:09 | P.HP_ITS ---
History of Present Illness History of Present Illness Date Patient Seen: 03/29/24 Time Patient Seen: 23:00 Chief complaint: Chest Pain, Abd numbness, constipation Narrative: 43 y/o with PMH of alcoholism, presented to ED with complaints on chest and abdominal pain, tremulous, starting to show withdrawal, lesss then a day after his last drink. [facility] Medical History (Updated 03/30/24 @ 05:26 by Rob Baltazar MD) Alcoholism Chronic cough (~2021) Cirrhosis Hypokalemia Pancreatitis (~2022) Alcohol abuse Patient denies medical problems Family History Father History of heart disease Hypertension Hyperlipidemia Stroke Mother History of heart disease Hyperlipidemia Social History household members: family Smoking Status: Current every day smoker alcohol intake: current Meds Home Medications and Allergies Home Medications Medication Instructions Recorded Confirmed Type No Known Home Medications 03/29/24 03/29/24 History Allergies Allergy/AdvReac Type Severity Reaction Status Date / Time morphine AdvReac Unknown Uncoded 02/13/23 11:29 Review of Systems Constitutional Comments: w/o fever or chills Cardiovascular Comments: resolved chest pain Respiratory Comments: w/o cough, chronically short of breath Gastrointestinal Comments: resolved abdominal pain frequent heartburn episodic dark stool Neurologic Comments: shaking hands Psychiatric Comments: anxious Exam Vital Signs (past 8 hours): - 03/29/24 21:30 03/29/24 21:30 03/29/24 22:10 Temperature 99.7 F H Pulse Rate 85 97 H Respiratory Rate 19 21 Blood Pressure 113/76 122/87 Pulse Oximetry 98 97 Oxygen Delivery Method Oxygen Flow Rate 0 03/29/24 22:18 03/29/24 22:30 03/29/24 22:54 Temperature 99.7 F H Pulse Rate 102 H 98 H Respiratory Rate 15 24 Blood Pressure Pulse Oximetry 97 97 Oxygen Delivery Method Room Air Oxygen Flow Rate 0 03/29/24 23:00 03/29/24 23:30 03/30/24 00:00 Temperature Pulse Rate 99 H 99 H 95 H Respiratory Rate 19 20 17 Blood Pressure Pulse Oximetry 95 94 95 Oxygen Delivery Method Oxygen Flow Rate 03/30/24 00:30 03/30/24 01:00 03/30/24 01:30 Temperature Pulse Rate 95 H 93 H 91 H Respiratory Rate 17 18 17 Blood Pressure Pulse Oximetry 95 95 96 Oxygen Delivery Method Oxygen Flow Rate 03/30/24 02:00 03/30/24 02:00 03/30/24 02:16 Temperature 98.3 F Pulse Rate 93 H 86 Respiratory Rate 19 18 Blood Pressure 112/77 112/77 Pulse Oximetry 94 96 Oxygen Delivery Method Oxygen Flow Rate 03/30/24 02:16 03/30/24 02:30 03/30/24 03:00 Temperature Pulse Rate 99 H 94 H 82 Respiratory Rate 22 Blood Pressure Pulse Oximetry 95 95 94 Oxygen Delivery Method Oxygen Flow Rate 03/30/24 03:30 Temperature Pulse Rate 97 H Respiratory Rate Blood Pressure Pulse Oximetry 95 Oxygen Delivery Method Oxygen Flow Rate Oxygen Delivery Method Room Air Oxygen Flow Rate 0 Const Other: sitting in bed in no distress HENMT Other: normocephalic Eyes Other: eomi Neck Other: supple Resp Other: tachypnea Cardio Other: RRR Skin Other: not jaundiced Neuro Other: b/l arm tremor Extrem Other: w/o swelling Psych Other: anxiety, not delirious Objective ECG Impression: NSR w/o ischemic changes Labs 03/29/24 12:35 03/29/24 12:35 Labs: Laboratory Results - last 24 hr 03/29/24 03/29/24 03/29/24 12:35 12:56 16:20 WBC 14.9 H RBC 3.55 L Hgb 13.1 L Hct 38.5 L MCV 108.5 H MCH 37.0 H MCHC 34.1 RDW 14.7 Plt Count 138 L Neut % (Auto) 83.3 H Lymph % (Auto) 8.1 L [place] % (Auto) 7.6 Eos % (Auto) 0.5 L Baso % (Auto) 0.5 Neut # (Auto) 79238 H Lymph # (Auto) 1200 [place] # (Auto) 1100 H Eos # (Auto) 100 Baso # (Auto) 100 PT 11.8 12.4 INR 1.0 1.1 APTT 38 H Sodium 139 Potassium 3.5 Chloride 104 Carbon Dioxide 19 L BUN 5 L Creatinine 0.45 L Estimated GFR > 60 BUN/Creatinine Ratio 11.1 Glucose 174 H Calcium 8.6 Magnesium 1.7 Total Bilirubin 2.0 H AST 301 H ALT 79 H Alkaline Phosphatase 392 H Total Creatine Kinase 47 L Troponin I < 0.012 Total Protein 7.7 Albumin 4.1 Globulin 3.6 Albumin/Globulin Ratio 1.1 Lipase 111 Ur Bilirubin Confirm Positive H Urine RBC None seen Urine WBC 0-1/hpf Ur Squamous Epith Cells None seen Urine Bacteria None seen Urine Mucus 1+ H Ur Culture Indicated? Specimen cultured Vol Urine Centrifuged 10ml (spun) Nasal Screen MRSA (PCR) U Opiates 300ng/mL cut Negative Ur Oxycodone Screen Negative Urine Methadone Screen Negative Ur Barbiturates Screen Negative U Tricyclic Antidepress Negative Ur Phencyclidine Scrn Negative Ur Amphetamines Screen Negative U Methamphetamines Scrn Negative Ur MDMA Scrn (Ecstasy) Negative U Benzodiazepines Scrn Negative Urine Cocaine Screen Negative U Marijuana (THC) Screen Positive H Urine pH Normal Urine Specific [place] Normal Ur Creatinine Normal 03/29/24 22:15 WBC RBC Hgb Hct MCV MCH MCHC RDW Plt Count Neut % (Auto) Lymph % (Auto) [place] % (Auto) Eos % (Auto) Baso % (Auto) Neut # (Auto) Lymph # (Auto) [place] # (Auto) Eos # (Auto) Baso # (Auto) PT INR APTT Sodium Potassium Chloride Carbon Dioxide BUN Creatinine Estimated GFR BUN/Creatinine Ratio Glucose Calcium Magnesium Total Bilirubin AST ALT Alkaline Phosphatase Total Creatine Kinase Troponin I Total Protein Albumin Globulin Albumin/Globulin Ratio Lipase Ur Bilirubin Confirm Urine RBC Urine WBC Ur Squamous Epith Cells Urine Bacteria Urine Mucus Ur Culture Indicated? Vol Urine Centrifuged Nasal Screen MRSA (PCR) Not detected U Opiates 300ng/mL cut Ur Oxycodone Screen Urine Methadone Screen Ur Barbiturates Screen U Tricyclic Antidepress Ur Phencyclidine Scrn Ur Amphetamines Screen U Methamphetamines Scrn Ur MDMA Scrn (Ecstasy) U Benzodiazepines Scrn Urine Cocaine Screen U Marijuana (THC) Screen Urine pH Urine Specific [place] Ur Creatinine Assessment & Plan Assessment and plan (1) Alcohol withdrawal: Status: Acute (2) Chest pain: Status: Acute (3) Alcoholism: Status: Acute (4) GERD (gastroesophageal reflux disease): Status: Acute Assessment & Plan narrative: 1. Alcoholism / Alcohol Withdrawal / Alcoholic hepatitis - CIWA protocol, Ativan IV - had penobarbital in the ED - MVI/Thiamine/SS and dietary consults - had previous withdrawals, pancreatitis, likely gastritis 2. Chest pain - doesn't appear to be cardiac but rather epigastric - CT abdomen showing fatty liver 3. GERD / epigastric pain / reported episodic dark stool - given 80 mg of PPI IV in ED - stool for occult blood pending - Hb higher then before, > 13 - possible intermittent GI bleed, continuing PPI IV daily DVT prophylaxis - SCDs
--- NOTE | 2024-03-30 07:47 | PM.HP.1 ---
History of Present Illness History of Present Illness Date Patient Seen: 03/30/24 Chief complaint: Chest Pain, Abd numbness, constipation Narrative: From night doctor: 43 y/o with PMH of alcoholism, presented to ED with complaints on chest and abdominal pain, tremulous, starting to show withdrawal, lesss then a day after his last drink. Updates: He is feeling shaky but denies any hallucinations. He was vomiting a lot in the last several days and his epigastric numbness and pain. He was started on Protonix IV. He has been drinking about a 5th a day, he has had about 4 months a sobriety until about 6 months ago. He lives in [place] with his son. He is considering AA or other outpatient programs. He would like to stop drinking. He notes that he has not had any hematemesis or blood per rectum. [facility] Medical History Alcoholism Chronic cough (~2021) Cirrhosis Hypokalemia Pancreatitis (~2022) Alcohol abuse Patient denies medical problems Family History Father History of heart disease Hypertension Hyperlipidemia Stroke Mother History of heart disease Hyperlipidemia Social History household members: family Smoking Status: Current every day smoker alcohol intake: current Meds Home Medications and Allergies Home Medications Medication Instructions Recorded Confirmed Type No Known Home Medications 03/29/24 03/29/24 History Allergies Allergy/AdvReac Type Severity Reaction Status Date / Time morphine AdvReac Unknown Uncoded 02/13/23 11:29 Review of Systems Review of Systems Narrative: All else reviewed and otherwise unremarkable except as noted in the history and physical. Exam Vital Signs (past 8 hours): - 03/30/24 00:00 03/30/24 00:30 03/30/24 01:00 Temperature Pulse Rate 95 H 95 H 93 H Respiratory Rate 17 17 18 Blood Pressure Pulse Oximetry 95 95 95 03/30/24 01:30 03/30/24 02:00 03/30/24 02:00 Temperature 98.3 F Pulse Rate 91 H 93 H 86 Respiratory Rate 17 19 18 Blood Pressure 112/77 Pulse Oximetry 96 94 96 03/30/24 02:16 03/30/24 02:16 03/30/24 02:30 Temperature Pulse Rate 99 H 94 H Respiratory Rate 22 Blood Pressure 112/77 Pulse Oximetry 95 95 03/30/24 03:00 03/30/24 03:30 Temperature Pulse Rate 82 97 H Respiratory Rate Blood Pressure Pulse Oximetry 94 95 Oxygen Delivery Method Room Air Oxygen Flow Rate 0 Narrative Exam Narrative: NAD, alert and oriented, fluent speech, calm. He was a little shaky but not delirious. Mild distress. Normocephalic skull, EOMI, anicteric sclera, symmetric pupils. Oropharynx unremarkable, no droop. Neck supple, midline trachea, no adenopathy. Lungs clear, normal rate and effort. Heart regular, no murmur gallop or rub. Abdomen is soft, non distended and non tender. There is some tenderness in the midepigastric region. Extremities are free of edema. Skin is free of rash or lesions. Joints are not swollen or deformed. Judgment appears to be normal. Objective Imaging Chest x-ray: Radiologist's impression: No acute cardiopulmonary abnormality is seen. CT scan - abdomen: Radiologist's impression: FINDINGS: Image quality: Diagnostic. Lower Chest: No significant findings. ABDOMEN: Liver: No solid mass. Hepatic steatosis. Gallbladder: No radiopaque gallstones or wall thickening. Biliary ducts: No biliary dilation. Pancreas: No ductal dilation. Spleen: Size is within normal limits. Adrenal Glands: No adrenal nodules. Kidneys and Ureters: No hydronephrosis. No solid mass. No complex renal cystic lesion which requires follow up. Stomach and Bowel: Normal colonic caliber, without significant wall thickening. Normal caliber appendix. Peritoneum: No abnormal intraperitoneal fluid. No free air. Ventral Wall: No significant ventral hernia. Abdominal Nodes: No retroperitoneal or mesenteric adenopathy by size criteria. Vessels: Aorta and inferior vena cava are normal in size. PELVIS: Pelvic Organs: Unremarkable. Bladder: No bladder wall thickening, accounting for underdistention. Pelvic Nodes: No enlarged lymph nodes. Miscellaneous: No inguinal hernias are seen. Bones: No aggressive osseous abnormality. IMPRESSION: Hepatic steatosis. No other acute findings in the abdomen or pelvis. Labs 03/29/24 12:35 03/29/24 12:35 Labs: Laboratory Results - last 24 hr 03/29/24 03/29/24 03/29/24 12:35 12:56 16:20 WBC 14.9 H RBC 3.55 L Hgb 13.1 L Hct 38.5 L MCV 108.5 H MCH 37.0 H MCHC 34.1 RDW 14.7 Plt Count 138 L Neut % (Auto) 83.3 H Lymph % (Auto) 8.1 L [place] % (Auto) 7.6 Eos % (Auto) 0.5 L Baso % (Auto) 0.5 Neut # (Auto) 27415 H Lymph # (Auto) 1200 [place] # (Auto) 1100 H Eos # (Auto) 100 Baso # (Auto) 100 PT 11.8 12.4 INR 1.0 1.1 APTT 38 H Sodium 139 Potassium 3.5 Chloride 104 Carbon Dioxide 19 L BUN 5 L Creatinine 0.45 L Estimated GFR > 60 BUN/Creatinine Ratio 11.1 Glucose 174 H Calcium 8.6 Magnesium 1.7 Total Bilirubin 2.0 H AST 301 H ALT 79 H Alkaline Phosphatase 392 H Total Creatine Kinase 47 L Troponin I < 0.012 Total Protein 7.7 Albumin 4.1 Globulin 3.6 Albumin/Globulin Ratio 1.1 Lipase 111 Ur Bilirubin Confirm Positive H Urine RBC None seen Urine WBC 0-1/hpf Ur Squamous Epith Cells None seen Urine Bacteria None seen Urine Mucus 1+ H Ur Culture Indicated? Specimen cultured Vol Urine Centrifuged 10ml (spun) Nasal Screen MRSA (PCR) U Opiates 300ng/mL cut Negative Ur Oxycodone Screen Negative Urine Methadone Screen Negative Ur Barbiturates Screen Negative U Tricyclic Antidepress Negative Ur Phencyclidine Scrn Negative Ur Amphetamines Screen Negative U Methamphetamines Scrn Negative Ur MDMA Scrn (Ecstasy) Negative U Benzodiazepines Scrn Negative Urine Cocaine Screen Negative U Marijuana (THC) Screen Positive H Urine pH Normal Urine Specific [place] Normal Ur Creatinine Normal 03/29/24 22:15 WBC RBC Hgb Hct MCV MCH MCHC RDW Plt Count Neut % (Auto) Lymph % (Auto) [place] % (Auto) Eos % (Auto) Baso % (Auto) Neut # (Auto) Lymph # (Auto) [place] # (Auto) Eos # (Auto) Baso # (Auto) PT INR APTT Sodium Potassium Chloride Carbon Dioxide BUN Creatinine Estimated GFR BUN/Creatinine Ratio Glucose Calcium Magnesium Total Bilirubin AST ALT Alkaline Phosphatase Total Creatine Kinase Troponin I Total Protein Albumin Globulin Albumin/Globulin Ratio Lipase Ur Bilirubin Confirm Urine RBC Urine WBC Ur Squamous Epith Cells Urine Bacteria Urine Mucus Ur Culture Indicated? Vol Urine Centrifuged Nasal Screen MRSA (PCR) Not detected U Opiates 300ng/mL cut Ur Oxycodone Screen Urine Methadone Screen Ur Barbiturates Screen U Tricyclic Antidepress Ur Phencyclidine Scrn Ur Amphetamines Screen U Methamphetamines Scrn Ur MDMA Scrn (Ecstasy) U Benzodiazepines Scrn Urine Cocaine Screen U Marijuana (THC) Screen Urine pH Urine Specific [place] Ur Creatinine Assessment & Plan Assessment & Plan narrative: 1. Alcohol use disorder with acute alcohol withdrawal syndrome. Present on admission and active. 2. Alcohol-induced hepatitis, present on admission and active. 3. Chest pain and abdominal pain, present on admission and active. 4. Report of dark stools, present on admission and active. Plan: -CIWA protocol, MVI, thiamine. -clinical observation of abdominal pain with the differential including epigastric pain from gastritis, PUD, or pancreatitis. CT of the abdomen is reassuring. Treat symptomatically. -monitor mental status. -add Librium 25 t.i.d. -continue Protonix IV daily -MiraLax b.i.d. for constipation -Nicoderm 21 mg daily for tobacco replacement. Patient was full resuscitation. He is admitted inpatient status, there is a 2 midnight expectation of medical necessity for hospital care. Time Spent With Patient Time with patient: 30 to 49 minutes with 50% spent counseling/coordinating care Quality MIPS - Admit I confirm the patient?s Advance Care Plan is present, Code status is documented, Surrogate decision maker is in patient?s record [If Yes, STOP here]: Yes MIPS - Meds 'Current medications' to include all prescriptions, [id number] products, herbals, cannabis/cannabidiol products, and vitamin/mineral/dietary (nutritional) supplements. I have utilized all available resources to obtain, update, or review the patient?s current medications. [If Yes, STOP here]: Yes
[2024-03-30] MEDS: MULTIVITAMIN 1 TABLET 1 TAB PO (08:46)
[2024-03-30] MEDS: PANTOPRAZOLE 40 MG VIAL IV (08:46)
[2024-03-30] MEDS: THIAMINE 100 MG TABLET PO (08:46)
[2024-03-30] MEDS: LORazepam 2 MG/ML INJ IV (08:46)
[2024-03-30] MEDS: FOLIC ACID 1 MG TABLET PO (08:46)
[2024-03-30] MEDS: chlordiazePOXIDE 25 MG CAPSULE PO ×3 (10:15→20:05)
[2024-03-30] MEDS: polyethylene glycoL 3350 17 GM POWD.PACK PO ×2 (10:15→20:05)
[2024-03-30] MEDS: OXYCODONE IR 5 MG TABLET PO ×3 (10:18→20:05)
--- NOTE | 2024-03-30 10:28 | CM.DANOTE ---
Patient is a 43 yo male who was admitted INPT Status on 03/29/24 for Abd Pain and ETOH. Pt has a Medicaid insurance, he is looking for his card, but thinks [employer], and his PCP is Dr. Rachna Uriarte at [facility]. EMR was reviewed. Per MD, pt in with constipation/abdominal pain and chest pain with also ETOH withdrawal as pt stopped drinking due to his discomfort. Pt on CIWA protocol and not yet stable for discharge and to have bowel regimen and Ativan/librium for withdrawals. Per RN, pt to have laxative and seems steady currently on his feet and A&O x3 with CIWA 11. SW met bedside with pt and explained role and pt confirms he lives in [place] with his dad and is independent at baseline, drives, is employed, and confirms that he has a long hx of ETOH abuse. Pt confirms he was not purposefully abstaining from alcohol but was having abdominal pains that kept him from drinking. Pt has hx of ETOH withdrawals about a year ago and was at [facility] for about 6 days and denies any seizures and denies any hx of ETOH tx. Pt confirms he has been contemplating sobriety and abstinence from alcohol and states two friends have recently been through ETOH tx and he plans to talk to them to determine possible options for sobriety after discharge. SW offered ETOH resource list but pt declines at this time as he prefers to discuss [facility] options with his friends. Pt preference is to discharge home when medically stable and confirms his dad can provide transport home at d/c and pt may need an Excuse for Work letter at d/c for his employer and he has already alerted them to missing work tomorrow. Plan: SW to follow closely for plan of discharge home via father POV when medically stable and possible need of Medical Excuse for Work letter and ETOH resources if needed. LEONEL Ortez Discharge Planning/Care Management CM Discharge Assessment Start: 03/30/24 10:15 Freq: Status: Active Protocol: Document 03/30/24 10:16 BF (Rec: 03/30/24 10:27 BF [id number]) Discharge Planning Assessment Assigned Community Service Technician LEONEL Allen DPOA/Assigned Designee Name none, informally dad Advance Directives? No Advance Directives on File No History Provided By Patient,Medical Record Has Patient been admitted in last 30 No days? Prior Living Arrangements House Household Members family Type of transporation used prior to Drives own vehicle admit Independent with ADL's Yes Is patient alert and oriented? Yes Caregiver for Another No Barriers to Discharge No Discharge Plan Home Transportation Arrangement states his dad can give him a ride home at d/c Referrals Initiated Other Additional Comment Patient considering outpt ETOH tx, but declines resources at this time. Whiteboard Updated in Patient Room with Yes name and ext. # of Community Service Technician Review Status In Process Please Provide Date Initial DC 03/30/24 Assessment Was Performed Next Review Type Continued Stay Review
[2024-03-30] MEDS: MAG HYDROX/ALUMINUM/SIMETH SUS 20 ML, LIDOCAINE VISCOUS 2% 15 ML PO (15:49)
[2024-03-30] MEDS: NICOTINE 21 MG PATCH TOP (20:04)
[2024-03-30] MEDS: SODIUM CHLORIDE 0.9% FLUSH 10 ML IV (20:05)
[2024-03-31] VITALS (47 sets, daily range): BP systolic 105–113; BP diastolic 65–84; PULSE 80–104; RESP 11–41; TEMP 36.7–37.1; O2SAT 94–98
[2024-03-31] MEDS: LORazepam 2 MG/ML INJ IV (00:45)
[2024-03-31] MEDS: SODIUM CHLORIDE 0.9% FLUSH 10 ML IV ×4 (00:45→20:51)
[2024-03-31] MEDS: OXYCODONE IR 5 MG TABLET PO (01:32)
[2024-03-31] MEDS: HYDROMORPHONE 0.5 MG INJ IV (05:58)
[2024-03-31] MEDS: PANTOPRAZOLE 40 MG VIAL IV (08:23)
[2024-03-31] MEDS: OXYCODONE IR 10 MG TABLET PO ×4 (08:23→20:48)
[2024-03-31] MEDS: BISACODYL 5 MG TABLET PO (08:23)
[2024-03-31] MEDS: MULTIVITAMIN 1 TABLET 1 TAB PO (08:23)
[2024-03-31] MEDS: THIAMINE 100 MG TABLET PO (08:23)
[2024-03-31] MEDS: polyethylene glycoL 3350 17 GM POWD.PACK PO ×2 (08:23→20:48)
[2024-03-31] MEDS: FOLIC ACID 1 MG TABLET PO (08:23)
[2024-03-31] MEDS: chlordiazePOXIDE 25 MG CAPSULE PO ×3 (08:23→20:49)
[2024-03-31 08:49] LABS: Add Manual Diff / Slide Review NO; Basophils Absolute Auto 400 /uL (0-100); Basophils Percent Auto 3.5 % (0-2); Eosinophils Absolute Auto 300 /uL (0-450); Eosinophils Percent Auto 2.6 % (2-4); Hematocrit 35.9 % (41-53); Hemoglobin 12.3 g/dL (13.5-17.5); Lymphocytes Absolute Auto 1600 /uL (1100-4500); Lymphocytes Percent Auto 14.6 % (25-40); Mean Corpuscular HGB Conc 34.3 % (30-36); Mean Corpuscular Hemoglobin 37.2 PG (26-34); Mean Corpuscular Volume 108.5 fL (80-100); Monocytes Absolute Auto 700 /uL (0-900); Monocytes Percent Auto 6.9 % (3-14); Neutrophils Absolute Auto 7800 /uL (1500-7000); Neutrophils Percent Auto 72.4 % (50-75); Platelet Count 106 X10^3/uL (150-400); Red Blood Cell Count 3.31 X10^6/uL (4.5-5.9); Red Cell Distribution Width 14.7 % (11.6-14.8); White Blood Cell Count 10.8 X10^3/uL (4.5-11.0)
[2024-03-31 09:04] LABS: Alanine Aminotransferase 69 IU/L (<50); Albumin 3.5 g/dL (3.5-5.0); Albumin Globulin Ratio 1.1 (1.0-2.8); Alkaline Phosphatase 333 U/L (38-126); Aspartate Aminotransferase 271 IU/L (17-59); BUN Creatinine Ratio 7.1 (6-22); Bilirubin Total 2.4 mg/dL (0.2-1.3); Blood Urea Nitrogen 4 mg/dL (9-20); Calcium 8.4 mg/dL (8.4-10.2); Carbon Dioxide 22 mmol/L (22-32); Chloride 104 mmol/L (98-107); Estimated Glomerular Filt Rate > 60 mL/min (>60); Globulin 3.2 g/dL (1.7-4.1); Glucose 120 mg/dL (70-100); HEMOLYSIS < 15 (0-50); Magnesium 1.6 mg/dL (1.6-2.3); Potassium 3.6 mmol/L (3.4-5.1); Sodium 134 mmol/L (137-145); Total Protein 6.7 g/dL (6.3-8.2)
[2024-03-31] MEDS: HYDROMORPHONE 0.5 MG INJ 1 MG IV (09:33)
--- NOTE | 2024-03-31 10:12 | DIET.CONS ---
Dietary Consultation Note Admission Date: 03/29/2024 20:04 Assessment: 43 y M admitted for alcohol withdrawal, constipation/abd pain, chest pain. Nutrition consulted for alcoholism. Met with pt at bedside who reports unable to eat last 2 weeks without emesis, besides one meal of broccoli, meat, and potatoes. In last few months reports decrease in po intakes, consuming small snacks throughout day (a handful of food at a time). No significant weight loss noted per chart. After d/c from hospital plans to have 3 meals per day and snacks as needed. Requested handout to look over for guidance. Reports appetite has been improving during hospital stay. NFPE performed with mild loss in temporalis muscle and mild loss in buccal and orbital fat pads. No other significant results. Areas assessed: temporalis, clavicle/scapula region, interosseous, calf region, buccal and orbital fat pads, triceps. Ht: 180.34 cm Wt: 62.8 kg BMI: 20.2 UBW: 63.6-65.7 kg per pt report Last BM: 03/28/24 (03/29/24 22:14) MNA: 12 Marquis Score: 20 Diet: 03/30/24 Breakfast General (Regular) Diet Diet Modifications: Food Texture: Level 7 - Regular Liquid Consistency: Level 0 - Thin Nutrition Percent Meal Consumed 100% 03/30/24 18:00 Percent Meal Consumed 100% 03/30/24 10:39 Labs: RBC 3.31 X10^6/uL (4.5-5.9) L 03/31/24 08:43 Hgb 12.3 g/dL (13.5-17.5) L 03/31/24 08:43 Hct 35.9 % (41-53) L 03/31/24 08:43 Creatinine 0.56 mg/dL (0.66-1.25) L 03/31/24 08:43 Nutrition Diagnosis: Excessive alcohol intake r/t alcoholism aeb presenting with alcohol withdrawal symptoms, alcohol induced hepatitis Interventions: 1. Discussed adequate intake daily, balanced meals, nutrition to support healthy bowel movements, provided handout EER: [id number] kcals (30-33 kcals/kg per BMI) 60-70 g protein (1 g/kg, age, alcohol induced hepatitis) Monitoring/Evaluations: po intakes, f/u prn Electronically Signed by: Ana Perry 03/31/24 10:12 Clinical Dietitian [address] [address]
[2024-03-31] MEDS: HYDROMORPHONE 1 MG INJ IV ×3 (14:15→22:24)
--- NOTE | 2024-03-31 15:01 | P.PN_ITS ---
Subjective Subjective Interval history: 43 M admitted for alcohol withdrawal and constipation. No BM today but passing flatus. Abdominal pain improved. Tolerating a diet today. Still remains a bit wobbly / imbalanced but improved. Still weak. Still on libirum for etoh withdrawal. AST up a slight bit again today. Exam Vital Signs (past 8 hours): - 03/31/24 07:30 03/31/24 08:00 03/31/24 08:00 Temperature Pulse Rate 83 84 Respiratory Rate 12 21 Blood Pressure Pulse Oximetry 95 95 Oxygen Delivery Method Room Air 03/31/24 08:14 03/31/24 08:14 03/31/24 08:30 Temperature Pulse Rate 90 95 H Respiratory Rate 17 16 Blood Pressure 112/84 Pulse Oximetry 96 Oxygen Delivery Method 03/31/24 09:00 03/31/24 09:30 03/31/24 10:00 Temperature Pulse Rate 101 H 97 H 92 H Respiratory Rate 19 29 H 16 Blood Pressure Pulse Oximetry 94 Oxygen Delivery Method 03/31/24 10:00 03/31/24 10:30 Temperature 98.7 F Pulse Rate 92 H Respiratory Rate 14 Blood Pressure Pulse Oximetry 94 Oxygen Delivery Method Oxygen Delivery Method Room Air Oxygen Flow Rate 0 Narrative Exam Narrative: NAD, alert and oriented, fluent speech, calm. He was a little shaky but not delirious Normocephalic skull, EOMI, anicteric sclera, symmetric pupils. Oropharynx unremarkable, no droop. Neck supple, midline trachea, no adenopathy. Lungs clear, normal rate and effort. Heart regular, no murmur gallop or rub. Abdomen is soft, non distended and non tender. There is some tenderness in the suprapubic region, very mild. Extremities are free of edema. Skin is free of rash or lesions. Joints are not swollen or deformed. Judgment appears to be normal. Objective Labs 03/31/24 08:43 03/31/24 08:43 Labs: Laboratory Results - last 24 hr 03/31/24 08:43 WBC 10.8 RBC 3.31 L Hgb 12.3 L Hct 35.9 L MCV 108.5 H MCH 37.2 H MCHC 34.3 RDW 14.7 Plt Count 106 L Neut % (Auto) 72.4 Lymph % (Auto) 14.6 L [place] % (Auto) 6.9 Eos % (Auto) 2.6 Baso % (Auto) 3.5 H Neut # (Auto) 7800 H Lymph # (Auto) 1600 [place] # (Auto) 700 Eos # (Auto) 300 Baso # (Auto) 400 H Sodium 134 L Potassium 3.6 Chloride 104 Carbon Dioxide 22 BUN 4 L Creatinine 0.56 L Estimated GFR > 60 BUN/Creatinine Ratio 7.1 Glucose 120 H Calcium 8.4 Magnesium 1.6 Total Bilirubin 2.4 H AST 271 H ALT 69 H Alkaline Phosphatase 333 H Total Protein 6.7 Albumin 3.5 Globulin 3.2 Albumin/Globulin Ratio 1.1 [facility] Medical History Alcoholism Chronic cough (~2021) Cirrhosis Hypokalemia Pancreatitis (~2022) Alcohol abuse Patient denies medical problems Family History Father History of heart disease Hypertension Hyperlipidemia Stroke Mother History of heart disease Hyperlipidemia Social History household members: family Smoking Status: Current every day smoker alcohol intake: current Assessment & Plan Assessment & Plan narrative: 1. Alcohol use disorder with acute alcohol withdrawal syndrome. Present on admission and active. 2. Alcohol-induced hepatitis, present on admission and active. 3. Constipation, present on admission and active. Plan: -CIWA protocol, MVI, thiamine. -clinical observation of abdominal pain with the differential including epigastric pain from gastritis, PUD, or pancreatitis. CT of the abdomen is reassuring. Treat symptomatically. Will add additional laxitives today. Possible abdominal pain from alcoholic hepatitis as well. -monitor mental status. DF 24 on presentation, but much improved with improvement of Tbili to 2.4. CT abdomen without gallstones to suggest alternative biliary etiologies at this time. -continue librium 25 TID today, can likely stop tomorrow. -continue Protonix IV daily -MiraLax b.i.d. for constipation, senna and bisacodyl added today. -Nicoderm 21 mg daily for tobacco replacement. Patient was full resuscitation. He is admitted inpatient status, there is a 2 midnight expectation of medical necessity for hospital care. Time Spent With Patient Time with patient: 30 to 49 minutes with 50% spent counseling/coordinating care
[2024-03-31] MEDS: MAGNESIUM CHLORIDE 64 MG TABLET 128 MG PO (15:14)
--- NOTE | 2024-03-31 15:32 | CM.DPC ---
DCP Cont: Per MD, pt not yet stable for discharge home today and pending progress may be ready for discharge tomorrow. Per RN, CIWA scores decreased and around 4 today. Plan: SW to follow for plan of likely discharge home tomorrow pending progress and father to provide transport at d/c. SW to provide Excuse for Work letter. LEONEL Ortez
[2024-03-31] MEDS: NICOTINE 21 MG PATCH TOP (20:49)
[2024-03-31] MEDS: SENNOSIDES 8.6 MG TABLET 17.2 MG PO (20:49)
[2024-04-01] VITALS (13 sets, daily range): BP systolic 109–114; BP diastolic 68–77; PULSE 80–90; RESP 15–22; TEMP 37.1; O2SAT 95–99
[2024-04-01] MEDS: ONDANSETRON 4 MG/2 ML INJ IV (00:39)
[2024-04-01] MEDS: HYDROMORPHONE 1 MG INJ IV (02:25)
[2024-04-01 05:02] LABS: Add Manual Diff / Slide Review NO; Basophils Absolute Auto 100 /uL (0-100); Basophils Percent Auto 1.3 % (0-2); Eosinophils Absolute Auto 400 /uL (0-450); Eosinophils Percent Auto 3.8 % (2-4); Hematocrit 33.6 % (41-53); Hemoglobin 11.4 g/dL (13.5-17.5); Lymphocytes Absolute Auto 1500 /uL (1100-4500); Lymphocytes Percent Auto 15.4 % (25-40); Mean Corpuscular HGB Conc 33.8 % (30-36); Mean Corpuscular Hemoglobin 37.5 PG (26-34); Mean Corpuscular Volume 110.8 fL (80-100); Monocytes Absolute Auto 700 /uL (0-900); Monocytes Percent Auto 7.6 % (3-14); Neutrophils Absolute Auto 6800 /uL (1500-7000); Neutrophils Percent Auto 71.9 % (50-75); Platelet Count 97 X10^3/uL (150-400); Red Blood Cell Count 3.03 X10^6/uL (4.5-5.9); White Blood Cell Count 9.5 X10^3/uL (4.5-11.0)
[2024-04-01 05:17] LABS: Macrocytosis 1+
[2024-04-01] MEDS: PANTOPRAZOLE DR 40 MG TABLET PO (05:18)
[2024-04-01 05:20] LABS: Alanine Aminotransferase 61 IU/L (<50); Albumin 3.3 g/dL (3.5-5.0); Albumin Globulin Ratio 1.1 (1.0-2.8); Alkaline Phosphatase 265 U/L (38-126); Aspartate Aminotransferase 219 IU/L (17-59); BUN Creatinine Ratio 7.4 (6-22); Bilirubin Total 1.8 mg/dL (0.2-1.3); Blood Urea Nitrogen 5 mg/dL (9-20); Calcium 8.6 mg/dL (8.4-10.2); Carbon Dioxide 25 mmol/L (22-32); Chloride 106 mmol/L (98-107); Estimated Glomerular Filt Rate > 60 mL/min (>60); Glucose 98 mg/dL (70-100); HEMOLYSIS < 15 (0-50); Magnesium 1.5 mg/dL (1.6-2.3); Potassium 3.2 mmol/L (3.4-5.1); Sodium 136 mmol/L (137-145); Total Protein 6.3 g/dL (6.3-8.2)
[2024-04-01] MEDS: polyethylene glycoL 3350 17 GM POWD.PACK PO (08:31)
[2024-04-01] MEDS: OXYCODONE IR 10 MG TABLET PO (08:32)
[2024-04-01] MEDS: THIAMINE 100 MG TABLET PO (08:32)
[2024-04-01] MEDS: FOLIC ACID 1 MG TABLET PO (08:32)
[2024-04-01] MEDS: chlordiazePOXIDE 25 MG CAPSULE PO (08:32)
[2024-04-01] MEDS: MULTIVITAMIN 1 TABLET 1 TAB PO (08:32)
--- NOTE | 2024-04-01 09:12 | P.DS_ITS ---
History of Present Illness History of Present Illness Date Patient Seen: 04/01/24 Time Patient Seen: 09:12 Chief complaint: Chest Pain, Abd numbness, constipation Narrative: From night doctor: 43 y/o with PMH of alcoholism, presented to ED with complaints on chest and abdominal pain, tremulous, starting to show withdrawal, lesss then a day after his last drink. Updates: He is feeling shaky but denies any hallucinations. He was vomiting a lot in the last several days and his epigastric numbness and pain. He was started on Protonix IV. He has been drinking about a 5th a day, he has had about 4 months a sobriety until about 6 months ago. He lives in [place] with his son. He is considering AA or other outpatient programs. He would like to stop drinking. He notes that he has not had any hematemesis or blood per rectum. Discharge Providers Provider Date of admission: 03/29/24 20:04 Discharge Date: 04/01/24 Primary care physician: Rachna Uriarte DO Consults: 03/29/24 20:25 Consult to Dietitian, Adult Routine Comment: Reason For Exam: alcoholism 03/29/24 22:22 Consult to [place] Routine Comment: Discharge provider: Joe Gan DO Summary Hospital Course Discharge Diagnosis: 1. Alcohol use disorder with acute alcohol withdrawal syndrome. Present on admission and active. 2. Alcohol-induced hepatitis, present on admission and active. 3. Constipation, present on admission and active. Hospital Course: This is a 43 year old male admitted with alcohol withdrawal initially to the ICU with concern for possible need for precedex but this was not required to manage his withdrawal. He improved with librium which was able to be weaned off prior to discharge. He also had transaminitis consistent with alcoholic hepatitis but with DF of 24 on presentation he did not require steroids and bilirubin improved significantly the following day after admission. AST and ALT were improving at the time of discharge. He was ambulatory without assistance. His presenting abdominal/chest pain improved markedly after a bowel movement, and etiology is presumed secondary to constipation. Cardiac evaluation was unremarkable and no further evaluation is needed as an outpatient unless symptoms recur. He was also given a 14 day trial of pantoprazole at discharge for presumed gastritis or GERD due to alcohol intake. Time Spent with Patient Time spent: Greater than 30 minutes Exam Vital Signs (past 8 hours): - 04/01/24 01:30 04/01/24 02:01 04/01/24 02:30 Temperature Pulse Rate 87 86 84 Respiratory Rate Blood Pressure Pulse Oximetry 96 99 96 Oxygen Flow Rate 04/01/24 03:00 04/01/24 03:30 04/01/24 04:00 Temperature Pulse Rate 80 82 84 Respiratory Rate Blood Pressure Pulse Oximetry 95 95 96 Oxygen Flow Rate 04/01/24 04:30 04/01/24 05:00 04/01/24 08:00 Temperature 98.7 F Pulse Rate 81 80 90 Respiratory Rate 22 Blood Pressure 114/68 Pulse Oximetry 96 96 98 Oxygen Flow Rate 0 Oxygen Delivery Method Room Air Oxygen Flow Rate 0 Narrative Exam Narrative: NAD, alert and oriented, fluent speech, calm. He was a little shaky but not delirious Normocephalic skull, EOMI, anicteric sclera, symmetric pupils. Oropharynx unremarkable, no droop. Neck supple, midline trachea, no adenopathy. Lungs clear, normal rate and effort. Heart regular, no murmur gallop or rub. Abdomen is soft, non distended and non tender. There is some tenderness in the suprapubic region, very mild. Extremities are free of edema. Skin is free of rash or lesions. Joints are not swollen or deformed. Judgment appears to be normal. Objective Labs 04/01/24 04:15 04/01/24 04:15 Labs: Laboratory Results - last 24 hr 04/01/24 04:15 WBC 9.5 RBC 3.03 L Hgb 11.4 L Hct 33.6 L MCV 110.8 H MCH 37.5 H MCHC 33.8 RDW 15.0 H Plt Count 97 L Neut % (Auto) 71.9 Lymph % (Auto) 15.4 L [place] % (Auto) 7.6 Eos % (Auto) 3.8 Baso % (Auto) 1.3 Neut # (Auto) 6800 Lymph # (Auto) 1500 [place] # (Auto) 700 Eos # (Auto) 400 Baso # (Auto) 100 RBC Morphology See below Macrocytosis 1+ H Sodium 136 L Potassium 3.2 L Chloride 106 Carbon Dioxide 25 BUN 5 L Creatinine 0.68 Estimated GFR > 60 BUN/Creatinine Ratio 7.4 Glucose 98 Calcium 8.6 Magnesium 1.5 L Total Bilirubin 1.8 H AST 219 H ALT 61 H Alkaline Phosphatase 265 H Total Protein 6.3 Albumin 3.3 L Globulin 3.0 Albumin/Globulin Ratio 1.1 [facility] Medical History Alcoholism Chronic cough (~2021) Cirrhosis Hypokalemia Pancreatitis (~2022) Alcohol abuse Patient denies medical problems Family History Father History of heart disease Hypertension Hyperlipidemia Stroke Mother History of heart disease Hyperlipidemia Social History household members: family Smoking Status: Current every day smoker alcohol intake: current Discharge Plan Discharge Plan Patient Disposition: Home Provider Discharge Comment: You were admitted to the hospital with mild alcohol withdrawal, and constipation. Continue taking stool softeners, recommend continuing laxitive therapies for a few days. These include Senna, miralax, and bisacodyl. Discharge orders & Medications Prescriptions: New oxycodone 5 mg Tablet 5 mg PO Q4HR PRN (Reason: Pain, Moderate (4-6)) 7 Days Qty: 15 0RF pantoprazole 20 mg tablet,delayed release (DR/EC) 20 mg PO 0600 14 Days Qty: 14 0RF Follow up/Referrals: Rachna Uriarte DO [Primary Care Provider] - Diet/Activity/Treatments Diet: Diet as Tolerated and Regular Diet comment: no restrictions Activity: As tolerated, no restrictions. Visit Report/Discharge Packet Stand Alone Forms: Patient Portal/API, Stroke Signs & Symptoms Discharge Data Primary Care Provider: Rachna Uriarte
--- NOTE | 2024-04-01 09:29 | CM.DPC ---
DCP Cont. Reviewed EMR and team rounds for status updates. 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 His mother will be transporting him home this morning. No further DCP needs indicated at this time.
[2024-04-01] MEDS: MAGNESIUM CHLORIDE 64 MG TABLET 128 MG PO (09:31)
[2024-04-01] MEDS: SODIUM CHLORIDE 0.9% FLUSH 10 ML IV (09:32)
[2024-04-01] MEDS: POTASSIUM CHLORIDE 20 MEQ TAB PO (09:32)
== END 2024-04-01 09:50 | disposition home or self-care (01) | DRG 775 ==
LOC: ED 20:03 → AC 20:05 → ICU 22:12
PROVIDERS: Internal Medicine; Admitting Provider Internal Medicine; Emergency Provider Emergency Medicine; PCP Family Medicine; Referring Provider Emergency Medicine; Visit Provider Internal Medicine
DX: F10.239 Alcohol dependence with withdrawal, unspecified (principal); K70.10 Alcoholic hepatitis without ascites; F17.200 Nicotine dependence, unspecified, uncomplicated; K21.9 Gastro-esophageal reflux disease without esophagitis; R07.9 Chest pain, unspecified; K59.00 Constipation, unspecified
CPT/HCPCS: 36415; 71045; 74177; 80053; 80305; 81003; 81015; 82272; 82550; 83690; 83735; 84484; 85025; 85610; 85730; 87086; 87797; 93005; 96374; 96375; 99284; 99291; C9113; J1170; J2060; J2405; J2560; Q9967

== ENCOUNTER 2025-01-18 13:41 | Emergency (ER) | payer OTHER, SELFPAY ==
[2024-03-29 22:14] VITALS: BMI 20.2
[2025-01-18 13:59] VITALS: BP 168/91; PULSE 95; RESP 16; TEMP 37; O2SAT 99; BMI 22.3
[2025-01-18 14:28] VITALS: PULSE 80
--- NOTE | 2025-01-18 15:02 | DI.RAD.S_ITS ---
PROCEDURE: XR SHOULDER RT MIN 2V INDICATIONS: shoulder pain TECHNIQUE: 3 views of the shoulder were acquired. COMPARISON: None. FINDINGS: Bones: No fractures or dislocations. No suspicious bony lesions. Visualized ribs appear intact. Soft tissues: No suspicious soft tissue calcifications. IMPRESSION: No acute bony abnormality. Dictated by: Santi Tinajero M.D. on 01/18/2025 at 15:52 Approved by: Santi Tinajero M.D. on 01/18/2025 at 15:52
--- NOTE | 2025-01-18 15:05 | ED_ITS ---
HPI - Extremity Injury (Upper) <Damon Pierce PA-C - Last Filed: 01/18/25 16:05> General Chief Complaint: Extremity Injury, Upper Stated Complaint: R shoulder pain/injury Time Seen by Provider: 01/18/25 14:07 Source: patient Mode of arrival: Ambulatory History of Present Illness HPI narrative: 44-year-old male with past medical history GERD, alcoholism, alcohol withdrawal, liver disease, hepatitis-C, cirrhosis, pancreatitis presents to the ED with right-sided shoulder pain. Patient states that he has had chronic right-sided shoulder pain due to an injury that he sustained 5 years ago. Patient states he has repeatedly re-injured that shoulder. Patient states that is right shoulder has been acting up since September 2024 due to various lifting and twisting injuries. Patient states that he tried to lift something this morning, felt a pop and the pain has worsened. Patient reports sporadic numbness. No weakness, tingling. Patient does not currently have a PCP. Related Data Previous Rx's Medication Instructions Recorded pantoprazole 20 mg tablet,delayed 20 mg PO 06 #30 tabs 04/09/24 release Allergies Allergy/AdvReac Type Severity Reaction Status Date / Time morphine AdvReac Unknown Vomiting Verified 04/09/24 10:02 Review of Systems <Damon Pierce PA-C - Last Filed: 01/18/25 16:05> Constitutional Constitutional: Denies chills, Denies fatigue, Denies fever(s), Denies frequent falls, Denies lethargy and Denies weakness Eyes Eyes: Denies change in vision, Denies eye discharge, Denies irritation and Denies loss of vision ENT Ears, Nose, Mouth, and Throat: Denies change in voice, Denies dizziness, Denies neck pain, Denies sore throat and Denies throat swelling Cardiovascular Cardiovascular: Denies chest pain, Denies irregular heart rhythm, Denies lightheadedness, Denies palpitations, Denies dyspnea, Denies dyspnea on exertion and Denies orthopnea Respiratory Respiratory: Denies cough, Denies dyspnea, Denies dyspnea on exertion and Denies wheezing Gastrointestinal Gastrointestinal: Denies abdominal pain, Denies change in bowel habits, Denies diarrhea, Denies nausea and Denies vomiting Musculoskeletal Musculoskeletal: Denies neck pain and Denies numbness Integumentary/Breasts Skin/Breast: Denies pruritus, Denies erythema, Denies rash and Denies wounds Comments: right shoulder pain Neurologic Neurologic: Denies behavioral changes, Denies confusion, Denies dizziness, Denies frequent falls, Denies loss of vision, Denies numbness and Denies weakness Psychiatric Psychiatric: Denies anxiety, Denies behavioral changes, Denies confusion, Denies depression, Denies homicidal ideation and Denies suicidal ideation Endocrine Endocrine: Denies fatigue, Denies flushing and Denies palpitations Hematologic/Lymphatic Hematologic/Lymphatic: Denies easy bruising Allergic/Immunologic Allergic/Immunologic: Denies urticaria, Denies throat swelling and Denies wheezing Patient History <Damon Pierce PA-C - Last Filed: 01/18/25 16:05> Medical History Alcoholism Chronic cough (~2021) Cirrhosis Hypokalemia Pancreatitis (~2022) Alcohol abuse Patient denies medical problems Family History Father History of heart disease Hypertension Hyperlipidemia Stroke Mother History of heart disease Hyperlipidemia Social History household members: family Smoking Status: Current every day smoker alcohol intake: current Smoking Status: Current every day smoker tobacco type: cigarettes alcohol intake frequency: 3 or more drinks per day Alcohol type: hard liquor Exam <Damon Pierce PA-C - Last Filed: 01/18/25 16:05> Narrative Exam Narrative: Const General:?cooperative, healthy appearing and comfortable [facility] Head:?normal to inspection Ears:?hearing grossly normal bilaterally Nose:?external nose normal Face and sinus:?normal facial exam and sinuses nontender Mouth:?oral mucosae normal Throat:?posterior oropharynx normal Eyes General:?appearance normal, both eyes and all related structures Neck Neck:?normal visual inspection and no lymphadenopathy noted Resp Effort & Inspection:?normal respiratory effort Auscultation:?clear to auscultation bilaterally Cardio Rate:?regular rate Rhythm:?regular rhythm Musculoskeletal No swelling, erythema, bruising, deformities noted on exam. There is some muscular tenderness to palpation of the right shoulder. Neuro General:?patient alert, patient awake and patient oriented x3 Initial Vital Signs Initial Vital Signs: Vital Signs Temperature 98.6 F 01/18/25 13:59 Pulse Rate 95 H 01/18/25 13:59 Respiratory Rate 16 01/18/25 13:59 Blood Pressure 168/91 H 01/18/25 13:59 Pulse Oximetry 99 01/18/25 13:59 Oxygen Delivery Method Room Air 01/18/25 13:59 <Jac Castle MD - Last Filed: 01/18/25 21:51> Initial Vital Signs Initial Vital Signs: Vital Signs Temperature 98.6 F 01/18/25 13:59 Pulse Rate 95 H 01/18/25 13:59 Respiratory Rate 16 01/18/25 13:59 Blood Pressure 168/91 H 01/18/25 13:59 Pulse Oximetry 99 01/18/25 13:59 Oxygen Delivery Method Room Air 01/18/25 13:59 Course <Damon Pierce PA-C - Last Filed: 01/18/25 16:05> Orders Ordered: ED Orders 01/18/25 15:02 XR shoulder RT min 2V Stat Vital Signs Vital signs: Vital Signs - 8 hr 01/18/25 13:59 01/18/25 14:28 01/18/25 16:09 Temperature 98.6 F 98 F Pulse Rate 95 H 80 Pulse Rate [Right Radial] 80 Respiratory Rate 16 18 Blood Pressure 168/91 H 148/80 H Pulse Oximetry 99 99 Oxygen Delivery Method Room Air Room Air <Jac Castle MD - Last Filed: 01/18/25 21:51> Orders Ordered: ED Orders 01/18/25 15:02 XR shoulder RT min 2V Stat Vital Signs Vital signs: Vital Signs - 8 hr 01/18/25 13:59 01/18/25 14:28 01/18/25 16:09 Temperature 98.6 F 98 F Pulse Rate 95 H 80 Pulse Rate [Right Radial] 80 Respiratory Rate 16 18 Blood Pressure 168/91 H 148/80 H Pulse Oximetry 99 99 Oxygen Delivery Method Room Air Room Air MDM - Extremity Injury (Upper) <Damon Pierce PA-C - Last Filed: 01/18/25 16:05> MDM Narrative Medical decision making narrative: 44-year-old male with past medical history GERD, alcoholism, alcohol withdrawal, liver disease, hepatitis-C, cirrhosis, pancreatitis presents to the ED with right-sided shoulder pain. concern for fracture/dislocation versus musculoskeletal sprain / strain versus other. Will obtain x-ray. Will reassess. X-ray shows no acute bony abnormality. Patient was provided a list of PCP's accepting new patients. Discussed findings with patient, recommend establishing care with a PCP for further evaluation and treatment. recommend supportive care with Tylenol, ibuprofen, heat/ ice, lidocaine patches. ED return precautions discussed with patient. Patient verbalized understanding. Medical records reviewed: Yes Discharge Plan Departure Patient Disposition: Home Clinical Impression: Right shoulder pain Qualifiers: Chronicity: acute Qualified Code(s): M25.511 - Pain in right shoulder Instructions: DI for Shoulder Sprain Activity Restrictions/Additional Instructions: You were evaluated in the ED today for shoulder pain. The x-ray was normal. It is likely that you have a chronic soft tissue injury that needs further evaluation and treatment by primary care physician. You are being provided a list of resources to establish care with a new PCP. In the meanwhile, you may take Tylenol, ibuprofen for the pain. You may also apply lidocaine patches, ice/ heat. Return to the ED if you have worsening symptoms, numbness, tingling, weakness. Prescriptions: No Action pantoprazole 20 mg tablet,delayed release (DR/EC) 20 mg PO 0600 Qty: 30 11RF Referrals: Rachna Uriarte DO [Primary Care Provider] - Stand Alone Forms: Patient Portal/API/Survey ED Sign-out <Jac Castle MD - Last Filed: 01/18/25 21:51> Cosign ED Attending [place] Attestation: I was immediately available in the department for consultation. This documentation has been reviewed and I agree with assessment and plan. Supervised by Jac Castle MD
[2025-01-18 16:09] VITALS: BP 148/80; PULSE 80; RESP 18; TEMP 36.6; O2SAT 99
== END 2025-01-18 16:11 | disposition home or self-care (01) ==
PROVIDERS: Emergency Provider Student in an Organized Health Care Education/Training Program; PCP Family Medicine
DX: M25.511 Pain in right shoulder (principal)
CPT/HCPCS: 73030; 99281; 99283